=== PATIENT | female | born 1950 | race Caucasian/White ===

== ENCOUNTER 2016-11-24 09:58 | Outpatient (CLI) | payer OTHER, MEDICARE ==
--- NOTE | 2016-11-24 11:40 | DIAGNOSTIC IMAGING REPORT ---
PROCEDURE: DEXA BONE DENSITY STUDY CLINICAL INDICATION: OSTEOPORISIS COMPARISON: None. FINDINGS: LUMBAR SPINE: Bone mineral density 0.892 g/cm2, T score -1.4 osteopenia which represents a 2% improvement over the previous study LEFT HIP: Bone mineral density 0.849 g/cm2, T score -0.8 normal which represents an 11.5% decrease from the previous study LEFT FEMORAL NECK: Bone mineral density 0.731 g/cm2, T score -1.1 osteopenia which represents a 15.9% decrease from the previous study FRACTURE RISK CALCULATION ( when applicable): 10-year fracture risk of a major osteoporotic fracture 8.2 %and of a hip fracture 0.8 % (T score greater or equal to -1.0 to: NORMAL) (T score from -1.1 to -2.4: OSTEOPENIA) (T score ess than or equal to -2.5: OSTEOPOROSIS) IMPRESSION: 1. Osteopenia lumbar spine and femoral neck.
--- NOTE | 2016-11-24 13:24 | DIAGNOSTIC IMAGING REPORT ---
PROCEDURE: MG BILATERAL SCREENING W/CAD INDICATION: SCREENING TECHNIQUE: Bilateral CC and MLO digital views. COMPARISON: None available. FINDINGS: Computer-aided detection applied. Moderately dense. No change. IMPRESSION: 1. Probable negative mammogram. Comparison with prior outside mammogram studies recommended. These will be sent for. If and when these become available , an addendum can be issued this report. RESULT CODE: 0- Prior images needed. A. A negative report should not delay biopsy if a dominant or clinically suspicious mass is present. 10-15% of cancers are not identified by x-ray. B. A negative report may reinforce clinical impression. C. Adenosis and dense breasts may obscure an underlying neoplasm. D. False positive reports average 6-10%. E.. A yearly screening mammogram is recommended. A reminder letter will be scheduled.
== END 2016-11-24 23:00 ==
LOC: MAM SRH 09:58 → XR SRH 10:45 → MAM SRH 23:00
DX: M85.88 Other specified disorders of bone density and structure, other site (principal); Z12.31 Encounter for screening mammogram for malignant neoplasm of breast